=== PATIENT | male | born 1955 | race Hispanic/Latino ===

== ENCOUNTER → 2023-03-21 | Outpatient (CLI) | payer MEDICARE | LOC: RAD 14:20 | PROVIDERS: ATTEND Internal Medicine | DX: J40 Bronchitis, not specified as acute or chronic (principal); J44.1 Chronic obstructive pulmonary disease with (acute) exacerbation | CPT/HCPCS: 71046 ==

== ENCOUNTER → 2023-05-20 | Outpatient (CLI) | payer MEDICARE | LOC: RAD 15:26 | PROVIDERS: ATTEND Internal Medicine | DX: M25.551 Pain in right hip (principal); M79.651 Pain in right thigh ==

== ENCOUNTER → 2024-12-31 | Outpatient (REF) | payer MEDICARE | LOC: RAD 14:07 | PROVIDERS: ATTEND Internal Medicine | DX: I50.32 Chronic diastolic (congestive) heart failure (principal); R60.9 Edema, unspecified | CPT/HCPCS: 93306 ==